=== PATIENT | male | born 1975 | race Caucasian/White ===

== ENCOUNTER 2024-09-18 17:58 | Emergency (ER) | payer BC, SELFPAY ==
[2024-09-18 18:06] VITALS: BP 127/85
[2024-09-18 21:43] VITALS: BMI 26.7
[2024-09-18] MEDS: PERCOCET 5/325 1 TABLET PO (22:29)
[2024-09-18] MEDS: TORADOL 60 MG IM (22:30)
--- NOTE | 2024-09-18 22:54 | ED.GENMED ---
History of Present Illness
General
Chief Complaint: Fall
Source: patient
Exam Limitations: none
Time Seen by Provider: 09/18/24 22:12
Nursing documentation reviewed up to this point in time: agreed with
History of Present Illness
History of Present Illness:
This is a 49-year-old gentleman who has no significant past medical history save for brain tumor excision as a child. He takes no medicines on a daily basis.
Approximately 1 hour prior to arrival, while standing approximately 5 feet up on a ladder, fixing siding the ladder slipped, fell to the right and patient fell to the ground landing on his right side on top of the ladder. He denies head injury, no
loss of consciousness, has been ambulatory since incident. He complains of moderate pain right lateral to posterior distal rib region. Pain is worse with deep breath, worse with rotation of his trunk but he denies shortness of breath. No
headache, no dizziness nor lightheadedness, no neck nor back pain. No weakness nor numbness. He denies abdominal pain. No nausea or vomiting. He denies hematuria nor difficulty voiding but admits that he has not voided since incident. He has
not taken anything for pain.
Past History
Past History
ED Past Medical History: Cancer (Brain tumor excised as a child. No history of recurrence.)
ED Past Surgical History: Brain (Brain tumor excision during childhood.) and Tonsilectomy
Social History
Tobacco: Non-smoker
Personal:
Living: with family
Employment: Employed (Works remotely, case management)
Family History
Family History: Other (Noncontributory)
Phy Exam
Physical Exam
Physical Exam:
TRAUMA EXAM:
VITAL SIGNS: Vital signs reviewed, cooperative. 49-year-old gentleman appears his stated age, awake and alert, pleasant, appears in no acute distress. Lying supine on stretcher.
DISTRESS: No active disease
EYES: Pupils reactive, no orbital trauma
NOSE: No deformity or epistaxis
FACE AND SCALP: No scalp or facial trauma, external canals no blood
NECK: Supple nontender
BACK: Back nontender, pelvis stable to compression
RESPIRATORY: No distress, breath sounds normal, moderate tenderness right lateral to posterior lower costal region. No crepitus nor soft tissue swelling.
CARDIAC: No murmur, pulses equal and strong
ABDOMEN: Soft nontender bowel sounds normal
SKIN: Skin intact no bleeding, color normal
EXTREMITIES: Nontender
NEUROLOGICAL: Alert, oriented, no motor deficits
PSYCH: Mood affect normal
Course
Orders/Labs/Results
Orders:
Orders
09/18/24 18:08
Ribs, Right 3 View W/PA Chest [CR Ribs-right 3 Vw W/pa Chest*] Urgent
Comment:
Reason For Exam: fall and pain
09/18/24 22:24
Ketorolac [Toradol] 60 mg IM NOW STA
Oxycodone/Acetaminophen [Percocet 5/325] 1 tablet PO NOW STA
Rx Incentive Spirometry [RESP] Urgent
Frequency: q1h while awake
09/18/24 22:42
Urinalysis Urgent
Date Specimen was Collected: 09/18/24
Time Specimen was Collected: 22:41
Urine Microscopic Urgent
Date Specimen was Collected: 09/18/24
Time Specimen was Collected: 22:41
Abnormal Lab Results
09/18/24
22:42
Urine Occult Blood 4+ A
(Negative)
Urine Albumin 2+ A
(Neg - Trace)
Vital Signs
Initial and Last Documented VS:
Initial Vital Signs
Temp Pulse Resp BP Pulse Ox
98 F 103 22 127/85 98
09/18/24 18:06 09/18/24 18:06 09/18/24 18:06 09/18/24 18:06 09/18/24 18:06
Last Documented Vital Signs
Temp Pulse Resp BP Pulse Ox
98 F 103 22 127/85 97
09/18/24 18:06 09/18/24 18:06 09/18/24 18:06 09/18/24 18:06 09/18/24 21:44
MDM/Problems Addressed
Differential Diagnosis Includes:
Concern for rib fracture, pulmonary contusion/pneumothorax, renal contusion.
Overall appears comfortable and remains hemodynamically stable.
Chest x-ray/right rib series shows nondisplaced fractures of the right lateral 10th and 11th ribs. No pneumothorax. There is mild elevation of the right hemidiaphragm but no pleural effusion. Normal heart size.
Will medicate for pain with a dose of Toradol and Percocet.
Will check urinalysis assess for hematuria.
It is reassuring that abdomen is soft without appreciable tenderness.
Discussed usual course of rib fracture healing, supportive measures. Such as a local splinting, avoidance of rib belts. Ensuring deep breaths. Pain control.
Will plan for incentive spirometer
*Radiology
Radiology exam reviewed: radiology read reviewed
*Pulse Oximetry
Patient hypoxic: no
*Critical Care Note
Total Time (30-74mins, 75-104mins- exclusive of procedures): Not Applicable
Update Note
Update Note:
23:45
Patient feeling improved after pain medication. Resting comfortably.
Remains hemodynamically stable.
Preliminary urinalysis +4 blood.
Bedside FAST exam is unremarkable, no evidence of free fluid, unremarkable kidneys bilaterally. Liver appears unremarkable as does spleen.
Will discharge to home with plan as above.
Follow-up with PCP for recheck.
Return precautions discussed.
ED Attending Note
-
Portions of this chart may have been created with voice recognition software.� Occasional wrong word or��sound alike� substitutions may have occurred due to the inherent limitations of voice recognition software.
Discharge Plan
Departure
Patient Disposition: Home (Routine Discharge)
Date of Disposition: 09/18/24
Time of Disposition: 23:44
Patient with high blood pressure during this ER visit?: No
Condition: Good
Discharge Problem:
Right 10th, 11th rib fractures
Instructions: How to use an incentive spirometer, Rib Fracture
Prescriptions:
New
ibuprofen 800 mg tablet
800 mg PO QIDPRN PRN (Reason: pain, fever) Qty: 30 0RF
oxycodone-acetaminophen [Percocet] 5-325 mg Tablet
1 tab PO Q6HPRN PRN (Reason: pain) Qty: 10 0RF
Referrals:
NONE,* [Family Provider] -
Activity Restrictions/Additional Instructions:
Touch base with your family doctor this week for recheck.
Interventions
Interventions:
*Risk Screen - Suicide Last Done: 09/18/24 18:06
*General Assessment Last Done: 09/18/24 18:06
*Neglect/Abuse Screening Last Done: 09/18/24 18:06
*ED COVID-19 Vaccine History Last Done: 09/18/24 21:44
ED-Musculoskeletal Assessment Last Done: 09/18/24 21:44
ED- Neurological Assessment Last Done: 09/18/24 21:44
ED-Skin Assessment Last Done: 09/18/24 21:44
Discharge Date and Time
Print Language: PASHTO
[2024-09-18 23:17] LABS: Urine Albumin 2+ (Neg - Trace); Urine Bilirubin Negative (Negative); Urine Character Clear (Clear); Urine Color Yellow; Urine Glucose Negative (Negative); Urine Ketone Negative (Negative); Urine Leukocyte Negative (Negative); Urine Nitrite Negative (Negative); Urine Occult Blood 4+ (Negative); Urine Specific Gravity 1.025 (<1.030); Urine Urobilinogen Negative (Neg - 1+)
[2024-09-18 23:54] LABS: Urine Amorphous Seen; Urine Mucus Many; Urine Red Blood Cell >100 /HPF (0-2)
[2024-09-18 23:55] LABS: Urine Bacteria Many (Negative); Urine Granular Cast >15 /LPF (0); Urine Squamous Cell >30 /LPF (Few)
== END 2024-09-18 23:52 | disposition home or self-care (01) ==
LOC: EMR 17:58
PROVIDERS: EMERGENCY PHYSICIAN Emergency Medicine
DX: S22.41XA Multiple fractures of ribs, right side, initial encounter for closed fracture (principal); W11.XXXA Fall on and from ladder, initial encounter
CPT/HCPCS: 96372; 99284; 71101; 81003; 81015